=== PATIENT | male | born 1935 | race American Indian/Alaskan Native ===

== ENCOUNTER 2018-11-06 16:14 | Inpatient (IN) | payer MEDICARE ==
[2018-11-06] MEDS ORDERED: Sodium Chloride 0.9% 500 ML IV ONE ×2 (17:12→18:38)
--- NOTE | 2018-11-06 17:32 | RAD ---
Date of service: 11/06/2018 PROCEDURE: CHEST RADIOGRAPH, 1 VIEW HISTORY: abd pain COMPARISON: Chest radiograph dated 09/17/2013. FINDINGS: LUNGS: Clear. PLEURA: No pneumothorax or pleural fluid seen. CARDIOVASCULAR: Aortic atherosclerotic calcifications. Cardiomediastinal silhouette within normal limits. OSSEOUS STRUCTURES: Unchanged. VISUALIZED UPPER ABDOMEN: Normal. OTHER FINDINGS: None. IMPRESSION: No active disease.
--- NOTE | 2018-11-06 17:38 | C.PDOC ---
History Of Present Illness 83 y/o male presents to the ER with son for evaluation of generalized weakness. Son states that patient has progressively decreased appetite and PO intake. Son reports that patient has not evaluated by a PMD for many years. Patient notes that he has cough. Denies having CP, SOB, nausea, vomiting, abdominal pain, rectal pain, and rectal bleeding. Time Seen by Provider: 11/06/18 16:38 Chief Complaint (Nursing): Weakness/Neurological Deficit History Per: Patient, Family (son) History/Exam Limitations: no limitations Onset/Duration Of Symptoms: Days Current Symptoms Are (Timing): Still Present Severity: Moderate Past Medical History Reviewed: Historical Data, Nursing Documentation, Vital Signs Vital Signs: Last Vital Signs Temp 98.9 F 11/06/18 16:28 Pulse 88 11/06/18 16:28 Resp 18 11/06/18 16:28 BP 156/117 H 11/06/18 16:28 Pulse Ox 99 11/06/18 16:28 - Medical History PMH: Seizures Surgical History: No Surg Hx - [facility] Procedures COLONOSCOPY (09/17/13) ESOPHAGOGASTRODUODENOSCOPY [EGD] W/CLOSED BIOPSY (09/17/13) PACKED CELL TRANSFUSION (09/17/13) Family History: States: No Known Family Hx - Social History Hx Tobacco Use: No Hx Alcohol Use: Yes (stppoed 20 years ago) Hx Substance Use: No - Immunization History Hx Tetanus Toxoid Vaccination: No Hx Influenza Vaccination: No Hx Pneumococcal Vaccination: No Review Of Systems Constitutional: Positive for: Weakness. Negative for: Fever, Chills Cardiovascular: Negative for: Chest Pain Respiratory: Negative for: Shortness of Breath Gastrointestinal: Negative for: Nausea, Vomiting, Abdominal Pain Physical Exam - Physical Exam Appears: No Acute Distress, Unkempt Skin: Warm, Dry, Pale (slightly pale) Head: Atraumatic, Normacephalic Eye(s): bilateral: Normal Inspection Neck: Supple Chest: Symmetrical Cardiovascular: Rhythm Regular Respiratory: Rales (some scattered rales), No Rhonchi, No Wheezing Gastrointestinal/Abdominal: Soft, No Tenderness, No Guarding, No Rebound Extremity: Normal ROM, Pedal Edema Neurological/Psych: Oriented x3, Normal Speech, Normal Cognition, Normal Motor, Normal Sensation ED Course And Treatment - Laboratory Results Result Diagrams: 11/06/18 17:35 11/06/18 17:35 O2 Sat by Pulse Oximetry: 99 (RA) Pulse Ox Interpretation: Normal - Radiology CXR: Interpreted by Me, Viewed By Me CXR Interpretation: Yes: No Acute Disease Medical Decision Making Medical Decision Making: Plan: --Labs --UA --CXR --IV Fluids 1805 pt endorses feeling depressed sometimes, denies si, hi and ah. denies wa nting to speak to someone today about feelings of depression. [address] Stringer, will admit to his service. Disposition Discussed With Dr.: Lorena Stringer - Disposition Disposition: HOSPITALIZED Disposition Time: 18:46 Condition: FAIR Forms: [employer] (German) - Clinical Impression Clinical Impression: Failure to thrive syndrome, adult, Hypokalemia - PA / QUALITY COMPLIANCE MANAGER / Resident Statement MD/DO has reviewed & agrees with the documentation as recorded. - Scribe Statement The provider has reviewed the documentation as recorded by the Ygibe Praful Olea Provider Attestation All medical record entries made by the Scribe were at my direction and personally dictated by me. I have reviewed the chart and agree that the record accurately reflects my personal performance of the history, physical exam, medic al decision making, and the department course for this patient. I have also personally directed, reviewed, and agree with the discharge instructions and disposition.
[2018-11-06 17:41] LABS: BASO % 0.6 % (0.0-2.0); MEAN CELL VOLUME 87.7 fL (80.0-94.0); MEAN CORPUSCULAR HEMOGLOBIN 29.3 pg (27.0-31.0); MEAN CORPUSCULAR HGB CONC 33.4 g/dL (33.0-37.0); MEAN PLATELET VOLUME 9.3 fL (7.2-11.7); MONO # 0.1 K/uL (0.0-0.8); MONO % 4.2 % (0.0-10.0); NEUT # 2.1 K/uL (1.8-7.0); NEUT % 65.2 % (50.0-75.0); NRBC % 0.1 % (0.0-2.0); RBC 4.38 Mil/uL (4.40-5.90); RED CELL DISTRIBUTION WIDTH 14.6 % (11.5-14.5); WHITE BLOOD COUNT 3.3 K/uL (4.8-10.8)
[2018-11-06 17:44] LABS: HEMOGLOBIN 12.8 g/dL (12.0-18.0)
[2018-11-06 17:49] LABS: INR 1.2; PROTHROMBIN TIME 13.3 SECONDS (9.7-12.2)
[2018-11-06 17:51] LABS: ALB/GLOB RATIO 1.1 (1.0-2.1); ALBUMIN 4.8 g/dL (3.5-5.0); AST/SGOT 17 U/L (17-59); BLOOD UREA NITROGEN 10 mg/dL (9-20); CALCIUM 8.8 mg/dl (8.6-10.4); GFR NON-AFRICAN AMERICAN > 60; LIPASE 43 U/L (23-300)
[2018-11-06 17:58] LABS: ALT/SGPT < 6 U/L (21-72)
[2018-11-06] MEDS ORDERED: Potassium Chloride 20 mEq ER Tab PO STA (18:04)
--- NOTE | 2018-11-06 18:37 | CT ---
Date of service: 11/06/2018 PROCEDURE: CT HEAD WITHOUT CONTRAST. HISTORY: generalized weakness COMPARISON: None available. TECHNIQUE: Axial computed tomography images were obtained through the head/brain without intravenous contrast. Radiation dose: Total exam DLP = 950.55 mGy-cm. This CT exam was performed using one or more of the following dose reduction techniques: Automated exposure control, adjustment of the mA and/or kV according to patient size, and/or use of iterative reconstruction technique. FINDINGS: HEMORRHAGE: No intracranial hemorrhage. BRAIN: No mass effect or edema. Atrophy. Chronic microvascular ischemic changes. Bilateral basal ganglia lacunar infarctions. VENTRICLES: Unremarkable. No hydrocephalus. CALVARIUM: Unremarkable. PARANASAL SINUSES: Diffuse sinus mucosal thickening. MASTOID AIR CELLS: Unremarkable as visualized. No inflammatory changes. OTHER FINDINGS: None. IMPRESSION: No acute intracranial pathology. Age-related changes. Pansinusitis.
[2018-11-06] MEDS ORDERED: Potassium Chloride 20 mEq ER Tab PO ONE (18:38)
[2018-11-06] MEDS: Dextrose 5%/0.45% NS 1,000 ML IV SCH (20:50)
[2018-11-07 01:19] VITALS: RESP 20
[2018-11-07 03:23] LABS: SQUAMOUS EPITHIAL 1 /hpf (0-5); URINE BACTERIA MANY (<OCC); URINE BILIRUBIN NEGATIVE (NEGATIVE); URINE BLOOD 1+ (NEGATIVE); URINE CLARITY Hazy (Clear); URINE COLOR Yellow (YELLOW); URINE GLUCOSE (UA) NORMAL (Normal); URINE LEUKOCYTE ESTERASE 2+ Leu/uL (Negative); URINE PROTEIN NEGATIVE (NEGATIVE)
[2018-11-07] MEDS: Pantoprazole 40 mg EC Tab PO SCH (09:29)
[2018-11-07] MEDS: Enoxaparin 40 mg Syringe SC SCH (09:29)
[2018-11-07] MEDS: Dextrose 5%/0.45% NS 1,000 ML IV SCH ×2 (09:33→12:27)
--- NOTE | 2018-11-07 10:24 | CP.PCM.PN ---
Subjective - Date & Time of Evaluation Date of Evaluation: 11/07/18 Time of Evaluation: 08:45 - Subjective Subjective: Medicine progress note ( Dr. Stringer's service) Patient was seen and examined at bedside while resting in bed comfortably. Patient states that he is doing well and has no complaints. Patient denies any discomfort. When patient was asked why he was admitted, he states that he does not know and was mildly agitated about being questioned. Patient states that he is attempting to eat. As per phone conversation with son, Gurvinder, patient was not been eating, increase weakness and needing more assistance from his son. Objective - Vital Signs/Intake and Output Vital Signs (last 24 hours): Temp Pulse Resp BP Pulse Ox 97.8 F 75 20 126/78 99 11/07/18 07:28 11/07/18 07:28 11/07/18 07:28 11/07/18 07:28 11/07/18 07:52 Intake and Output: 11/07/18 11/07/18 06:59 18:59 Intake Total 1160 Balance 1160 - Medications Medications: Current Medications Enoxaparin Sodium (Lovenox) 40 mg SC DAILY [facility] Last Admin: 11/07/18 09:29 Dose: 40 mg Dextrose/Sodium Chloride (Dextrose 5%/0.45% Ns 1000 Ml) 1,000 mls @ 80 mls/hr IV .[id number] [facility] Last Admin: 11/07/18 09:33 Dose: Not Given Pantoprazole Sodium (Protonix Ec Tab) 40 mg PO DAILY [facility] Last Admin: 11/07/18 09:29 Dose: 40 mg - Labs Labs: 11/06/18 17:35 11/06/18 17:35 PT 13.3 SECONDS (9.7-12.2) H 11/06/18 17:35 INR 1.2 11/06/18 17:35 APTT 33 SECONDS (21-34) 11/06/18 17:35 - Constitutional Appears: No Acute Distress - Head Exam Head Exam: ATRAUMATIC, NORMAL INSPECTION - Eye Exam Eye Exam: EOMI, Normal appearance - ENT Exam ENT Exam: Mucous Membranes Moist - Respiratory Exam Respiratory Exam: Clear to Ausculation Bilateral, NORMAL BREATHING PATTERN. absent: Decreased Breath Sounds, Prolonged Expiratory Phase, Rhonchi, Wheezes - Cardiovascular Exam Cardiovascular Exam: REGULAR RHYTHM, +S1, +S2. absent: Tachycardia, Murmur - GI/Abdominal Exam GI & Abdominal Exam: Soft, Normal Bowel Sounds. absent: Distended, Firm, Guarding, Rigid, Tenderness - Extremities Exam Extremities Exam: Normal Inspection. absent: Calf Tenderness, Pedal Edema - Neurological Exam Neurological Exam: Alert, Awake, Oriented x3 - Psychiatric Exam Psychiatric exam: Agitated Additional comments: Mildly agitated - Skin Skin Exam: Normal Color Assessment and Plan (1) Failure to thrive syndrome, adult Assessment & Plan: As per patient son, patient has not being doing well with decrease PO intake - Heart healthy diet with ensure supplement - PT and OT evaluation Status: Acute (2) Electrolyte imbalance Assessment & Plan: Hypokalemia, hypophosphatemia - Repleted appropriately -Continue to monitor with am labs Status: Acute (3) UTI (urinary tract infection) Assessment & Plan: UA: Nitrate positive and 2+ LE, F/u Urine culture Rocephin 1gm IV daily Status: Acute (4) Prophylactic measure Assessment & Plan: GI: Protonix 40mg PO daily DVT: Lovenox 40mg SC daily All plans and management discussed with Dr. Stringer Status: Acute
[2018-11-07 10:58] LABS: BASO % 0.7 % (0.0-2.0); EOS % 1.7 % (0.0-4.0); HEMOGLOBIN 11.1 g/dL (12.0-18.0); LYMPH # 1.3 K/uL (1.0-4.3); LYMPH % 44.9 % (20.0-40.0); MEAN CELL VOLUME 86.8 fL (80.0-94.0); MEAN CORPUSCULAR HEMOGLOBIN 30.3 pg (27.0-31.0); MEAN CORPUSCULAR HGB CONC 34.9 g/dL (33.0-37.0); MONO # 0.2 K/uL (0.0-0.8); MONO % 6.9 % (0.0-10.0); NEUT # 1.3 K/uL (1.8-7.0); NEUT % 45.8 % (50.0-75.0); NRBC % 0.1 % (0.0-2.0); RBC 3.67 Mil/uL (4.40-5.90); RED CELL DISTRIBUTION WIDTH 14.9 % (11.5-14.5); WHITE BLOOD COUNT 2.8 K/uL (4.8-10.8)
[2018-11-07 11:13] LABS: ALB/GLOB RATIO 1.2 (1.0-2.1); ALBUMIN 3.9 g/dL (3.5-5.0); ALT/SGPT 16 U/L (21-72); AST/SGOT 15 U/L (17-59); BLOOD UREA NITROGEN 9 mg/dL (9-20); CALCIUM 8.1 mg/dl (8.6-10.4); GFR NON-AFRICAN AMERICAN > 60
[2018-11-07] MEDS ORDERED: Potassium & Sodium Phosphate PO ONE (11:40)
[2018-11-07] MEDS ORDERED: Potassium Chloride 20 mEq ER Tab PO ONE ×2 (11:41→15:41)
[2018-11-07] MEDS: Saccharomyces Boulardi 250 mg Cap PO SCH (17:48)
[2018-11-08] MEDS: Dextrose 5%/0.45% NS 1,000 ML IV SCH ×3 (05:44→21:51)
[2018-11-08 06:15] LABS: BASO % 0.7 % (0.0-2.0); EOS % 1.5 % (0.0-4.0); LYMPH # 1.7 K/uL (1.0-4.3); LYMPH % 55.3 % (20.0-40.0); MEAN CELL VOLUME 88.3 fL (80.0-94.0); MEAN CORPUSCULAR HEMOGLOBIN 30.1 pg (27.0-31.0); MEAN PLATELET VOLUME 9.1 fL (7.2-11.7); MONO # 0.2 K/uL (0.0-0.8); MONO % 6.1 % (0.0-10.0); NEUT # 1.1 K/uL (1.8-7.0); NEUT % 36.4 % (50.0-75.0); NRBC % 0.1 % (0.0-2.0); RBC 3.67 Mil/uL (4.40-5.90); RED CELL DISTRIBUTION WIDTH 14.8 % (11.5-14.5)
[2018-11-08 06:32] LABS: ALB/GLOB RATIO 1.2 (1.0-2.1); ALBUMIN 3.9 g/dL (3.5-5.0); ALT/SGPT 15 U/L (21-72); AST/SGOT 14 U/L (17-59); BLOOD UREA NITROGEN 10 mg/dL (9-20); CALCIUM 8.1 mg/dl (8.6-10.4); GFR NON-AFRICAN AMERICAN > 60
--- NOTE | 2018-11-08 06:34 | HP ---
HISTORY OF PRESENT ILLNESS: The patient is an 83-year-old male, admitted to the hospital with chief complaint of failure to thrive, weakness, poor appetite. The patient came to the ER, evaluated, advised admission. There was positive nitrites in urinalysis. PHYSICAL EXAMINATION: GENERAL: The patient is awake, alert, weak, and under built. VITAL SIGNS: Temperature is 98 and pulse 90. HEENT: Within normal limits. NECK: Supple. CHEST: Symmetrical. HEART: Regular. ABDOMEN: Soft. EXTREMITIES: No edema. IMPRESSION AND PLAN: The patient suffers from probable urinary tract infection, failure to thrive. The patient to get intravenous fluids, gentle hydration, intravenous antibiotics. . Lorena Stringer MD
[2018-11-08] MEDS: Enoxaparin 40 mg Syringe SC SCH (10:32)
[2018-11-08] MEDS: Saccharomyces Boulardi 250 mg Cap PO SCH ×2 (10:33→17:26)
[2018-11-08] MEDS: Pantoprazole 40 mg EC Tab PO SCH (10:33)
[2018-11-08] MEDS: Megestrol Acetate 40 mg/ml Cup PO SCH (11:55)
--- NOTE | 2018-11-08 13:37 | CP.PCM.PN ---
Subjective - Date & Time of Evaluation Date of Evaluation: 11/08/18 Time of Evaluation: 07:00 - Subjective Subjective: PGY2- Progress Note for Dr. Stringer Patient seen and examined at bedside. Patient resting comfortably. Patient says he has no appetite and has not eaten any of his breakfast. Patient denies any chest pain, shortness of breath, abdominal pain, nausea, vomiting, constipation, diarrhea, dysuria, or hematuria. Objective - Vital Signs/Intake and Output Vital Signs (last 24 hours): Temp Pulse Resp BP Pulse Ox 97.7 F 77 20 140/80 98 11/08/18 01:00 11/08/18 01:00 11/08/18 01:00 11/08/18 01:00 11/07/18 20:00 Intake and Output: 11/08/18 11/08/18 06:59 18:59 Intake Total 820 Balance 820 - Medications Medications: Current Medications Enoxaparin Sodium (Lovenox) 40 mg SC DAILY [facility] Last Admin: 11/08/18 10:32 Dose: 40 mg Dextrose/Sodium Chloride (Dextrose 5%/0.45% Ns 1000 Ml) 1,000 mls @ 80 mls/hr IV .[id number] [facility] Last Admin: 11/08/18 10:32 Dose: Not Given Ceftriaxone Sodium 1 gm/ (Sodium Chloride) 100 mls @ 100 mls/hr IVPB Q24H [facility]; Protocol Last Admin: 11/08/18 11:54 Dose: 100 mls/hr Megestrol Acetate (Megace) 400 mg PO DAILY [facility] Last Admin: 11/08/18 11:55 Dose: 400 mg Pantoprazole Sodium (Protonix Ec Tab) 40 mg PO DAILY [facility] Last Admin: 11/08/18 10:33 Dose: 40 mg Saccharomyces Boulardii (Florastor) 250 mg PO BID [facility] Last Admin: 11/08/18 10:33 Dose: 250 mg - Labs Labs: 11/08/18 06:04 11/08/18 06:04 PT 13.3 SECONDS (9.7-12.2) H 11/06/18 17:35 INR 1.2 11/06/18 17:35 APTT 33 SECONDS (21-34) 11/06/18 17:35 - Constitutional Appears: Non-toxic, No Acute Distress, Unkempt - Head Exam Head Exam: ATRAUMATIC, NORMAL INSPECTION, NORMOCEPHALIC - Eye Exam Eye Exam: EOMI, Normal appearance - Respiratory Exam Respiratory Exam: Clear to Ausculation Bilateral, NORMAL BREATHING PATTERN. absent: Rales, Rhonchi, Wheezes, Stridor - Cardiovascular Exam Cardiovascular Exam: REGULAR RHYTHM, RRR, +S1, +S2 - GI/Abdominal Exam GI & Abdominal Exam: Soft, Normal Bowel Sounds. absent: Tenderness - Extremities Exam Extremities Exam: Full ROM, Normal Inspection. absent: Pedal Edema, Tenderness - Neurological Exam Neurological Exam: Alert, Awake, Oriented x3 - Psychiatric Exam Psychiatric exam: Normal Affect, Normal Mood - Skin Skin Exam: Intact, Normal Color, Warm Assessment and Plan - Assessment and Plan (Free Text) Assessment: (1) Failure to thrive syndrome, adult Assessment & Plan: - Heart healthy diet with ensure supplement - PT and OT evaluation - Megace 400mg po daily - D5 1/2 NS at 80 cc/hr Status: Acute (2) UTI (urinary tract infection) Assessment & Plan: UA: Nitrate positive and 2+ LE, F/u Urine culture Rocephin 1gm IV daily Florastor 250mg po BID Status: Acute (3) Electrolyte imbalance, resolved Assessment & Plan: Hypokalemia, hypophosphatemia - Repleted appropriately -Continue to monitor with am labs Status: Acute (4) Prophylactic measure Assessment & Plan: GI: Protonix 40mg PO daily DVT: Lovenox 40mg SC daily Status: Acute All plans and management discussed with Dr. Stringer
[2018-11-09 08:10] LABS: BASO % 0.5 % (0.0-2.0); EOS # 0.1 K/uL (0.0-0.7); EOS % 1.4 % (0.0-4.0); HEMOGLOBIN 10.8 g/dL (12.0-18.0); LYMPH # 2.1 K/uL (1.0-4.3); LYMPH % 51.7 % (20.0-40.0); MEAN CELL VOLUME 88.5 fL (80.0-94.0); MEAN CORPUSCULAR HEMOGLOBIN 29.3 pg (27.0-31.0); MEAN CORPUSCULAR HGB CONC 33.2 g/dL (33.0-37.0); MEAN PLATELET VOLUME 8.8 fL (7.2-11.7); MONO # 0.2 K/uL (0.0-0.8); MONO % 5.5 % (0.0-10.0); NEUT # 1.6 K/uL (1.8-7.0); NEUT % 40.9 % (50.0-75.0); NRBC % 0.2 % (0.0-2.0); RBC 3.69 Mil/uL (4.40-5.90); RED CELL DISTRIBUTION WIDTH 14.8 % (11.5-14.5)
[2018-11-09 08:22] LABS: ALB/GLOB RATIO 1.2 (1.0-2.1); ALT/SGPT < 6 U/L (21-72); AST/SGOT 17 U/L (17-59); BLOOD UREA NITROGEN 8 mg/dL (9-20); CALCIUM 8.1 mg/dl (8.6-10.4); GFR NON-AFRICAN AMERICAN > 60
[2018-11-09] MEDS: Enoxaparin 40 mg Syringe SC SCH (09:29)
[2018-11-09] MEDS: Megestrol Acetate 40 mg/ml Cup PO SCH (09:29)
[2018-11-09] MEDS: Pantoprazole 40 mg EC Tab PO SCH (09:29)
[2018-11-09] MEDS: Saccharomyces Boulardi 250 mg Cap PO SCH ×2 (09:29→17:56)
[2018-11-09] MEDS: Dextrose 5%/0.45% NS 1,000 ML IV SCH ×3 (10:00→21:30)
--- NOTE | 2018-11-09 10:25 | CP.PCM.PN ---
Subjective - Date & Time of Evaluation Date of Evaluation: 11/09/18 Time of Evaluation: 07:00 - Subjective Subjective: PGY2- Progress Note for Dr. Stringer Patient seen and examined at bedside. Patient resting comfortably. Patient says he ate some of his breakfast today. Patient denies any chest pain, shortness of breath, abdominal pain, nausea, vomiting, constipation, diarrhea, dysuria, or hematuria. Spoke with patient's son Gurvinder who says patient does not take any medications at home. Objective - Vital Signs/Intake and Output Vital Signs (last 24 hours): Temp Pulse Resp BP Pulse Ox 98 F 69 20 165/64 H 100 11/09/18 09:01 11/09/18 09:01 11/09/18 09:01 11/09/18 09:01 11/09/18 09:01 Intake and Output: 11/09/18 11/09/18 06:59 18:59 Intake Total 840 Output Total 600 Balance 240 - Medications Medications: Current Medications Enoxaparin Sodium (Lovenox) 40 mg SC DAILY [facility] Last Admin: 11/09/18 09:29 Dose: 40 mg Dextrose/Sodium Chloride (Dextrose 5%/0.45% Ns 1000 Ml) 1,000 mls @ 80 mls/hr IV .[id number] [facility] Last Admin: 11/08/18 21:51 Dose: 80 mls/hr Ceftriaxone Sodium 1 gm/ (Sodium Chloride) 100 mls @ 100 mls/hr IVPB Q24H [facility]; Protocol Last Admin: 11/08/18 11:54 Dose: 100 mls/hr Megestrol Acetate (Megace) 400 mg PO DAILY [facility] Last Admin: 11/09/18 09:29 Dose: 400 mg Pantoprazole Sodium (Protonix Ec Tab) 40 mg PO DAILY [facility] Last Admin: 11/09/18 09:29 Dose: 40 mg Saccharomyces Boulardii (Florastor) 250 mg PO BID [facility] Last Admin: 11/09/18 09:29 Dose: 250 mg - Labs Labs: 11/09/18 07:53 11/09/18 07:53 PT 13.3 SECONDS (9.7-12.2) H 11/06/18 17:35 INR 1.2 11/06/18 17:35 APTT 33 SECONDS (21-34) 11/06/18 17:35 - Additional Findings Additional findings: - Constitutional Appears: Non-toxic, No Acute Distress, Unkempt - Head Exam Head Exam: ATRAUMATIC, NORMAL INSPECTION, NORMOCEPHALIC - Eye Exam Eye Exam: EOMI, Normal appearance - Respiratory Exam Respiratory Exam: Clear to Ausculation Bilateral, NORMAL BREATHING PATTERN. absent: Rales, Rhonchi, Wheezes, Stridor - Cardiovascular Exam Cardiovascular Exam: REGULAR RHYTHM, RRR, +S1, +S2 - GI/Abdominal Exam GI & Abdominal Exam: Soft, Normal Bowel Sounds. absent: Tenderness - Extremities Exam Extremities Exam: Full ROM, Normal Inspection. absent: Pedal Edema, Tenderness - Neurological Exam Neurological Exam: Alert, Awake, Oriented x3 - Psychiatric Exam Psychiatric exam: Normal Affect, Normal Mood - Skin Skin Exam: Intact, Normal Color, Warm Assessment and Plan - Assessment and Plan (Free Text) Assessment: (1) Failure to thrive syndrome, adult Assessment & Plan: - Heart healthy diet with ensure supplement - PT and OT evaluation - Megace 400mg po daily Status: Acute (2) UTI (urinary tract infection) Assessment & Plan: UA: Nitrate positive and 2+ LE, F/u Urine culture Rocephin 1gm IV daily (started on 11/07/18) Florastor 250mg po BID Status: Acute (3) HTN Assessment & Plan: Lisinopril 2.5mg po daily (started on 11/09/18) continue to monitor Status: Acute (4) Electrolyte imbalance, resolved Assessment & Plan: Hypokalemia, hypophosphatemia - Repleted appropriately -Continue to monitor with am labs Status: Acute (5) Prophylactic measure Assessment & Plan: GI: Protonix 40mg PO daily DVT: Lovenox 40mg SC daily Status: Acute Dispo: patient to be discharged to rehab pending approval All plans and management discussed with Dr. Stringer
[2018-11-10] MEDS: Dextrose 5%/0.45% NS 1,000 ML IV SCH ×4 (01:59→23:00)
[2018-11-10 08:20] LABS: BASO % 0.3 % (0.0-2.0); EOS # 0.1 K/uL (0.0-0.7); EOS % 1.7 % (0.0-4.0); HEMOGLOBIN 11.1 g/dL (12.0-18.0); LYMPH # 2.1 K/uL (1.0-4.3); LYMPH % 47.9 % (20.0-40.0); MEAN CELL VOLUME 88.2 fL (80.0-94.0); MEAN CORPUSCULAR HEMOGLOBIN 30.3 pg (27.0-31.0); MEAN CORPUSCULAR HGB CONC 34.4 g/dL (33.0-37.0); MEAN PLATELET VOLUME 8.9 fL (7.2-11.7); MONO # 0.2 K/uL (0.0-0.8); MONO % 4.6 % (0.0-10.0); NEUT % 45.5 % (50.0-75.0); RBC 3.66 Mil/uL (4.40-5.90); RED CELL DISTRIBUTION WIDTH 14.3 % (11.5-14.5); WHITE BLOOD COUNT 4.4 K/uL (4.8-10.8)
[2018-11-10 08:32] LABS: ALB/GLOB RATIO 1.3 (1.0-2.1); ALT/SGPT 8 U/L (21-72); AST/SGOT 15 U/L (17-59); BLOOD UREA NITROGEN 7 mg/dL (9-20); CALCIUM 8.2 mg/dl (8.6-10.4); GFR NON-AFRICAN AMERICAN > 60
[2018-11-10] MEDS: Pantoprazole 40 mg EC Tab PO SCH (09:42)
[2018-11-10] MEDS: Megestrol Acetate 40 mg/ml Cup PO SCH (09:42)
[2018-11-10] MEDS: Saccharomyces Boulardi 250 mg Cap PO SCH ×2 (09:42→17:27)
[2018-11-10] MEDS: Enoxaparin 40 mg Syringe SC SCH (09:44)
--- NOTE | 2018-11-10 10:01 | CP.PCM.PN ---
Subjective - Date & Time of Evaluation Date of Evaluation: 11/10/18 Time of Evaluation: 10:00 - Subjective Subjective: Progress Note for Dr. Stringer Patient seen and examined at bedside. No acute events reported overnight. Patient resting comfortably in bed. Patient denies fever, chills, headache, dizziness, chest pain, shortness of breath, abdominal pain, nausea, vomiting, constipation, diarrhea, or dysuria. Objective - Vital Signs/Intake and Output Vital Signs (last 24 hours): Temp Pulse Resp BP Pulse Ox 98.2 F 61 20 151/87 H 100 11/10/18 07:53 11/10/18 07:53 11/10/18 07:53 11/10/18 07:53 11/10/18 07:53 Intake and Output: 11/10/18 11/10/18 06:59 18:59 Intake Total 1700 Output Total 500 Balance 1200 - Medications Medications: Current Medications Enoxaparin Sodium (Lovenox) 40 mg SC DAILY [facility] Last Admin: 11/10/18 09:44 Dose: 40 mg Ceftriaxone Sodium 1 gm/ (Sodium Chloride) 100 mls @ 100 mls/hr IVPB Q24H [facility]; Protocol Last Admin: 11/09/18 12:19 Dose: 100 mls/hr Dextrose/Sodium Chloride (Dextrose 5%/0.45% Ns 1000 Ml) 1,000 mls @ 80 mls/hr IV .[id number] [facility] Last Admin: 11/10/18 09:48 Dose: Not Given Lisinopril (Zestril) 2.5 mg PO DAILY [facility] Last Admin: 11/10/18 09:42 Dose: 2.5 mg Megestrol Acetate (Megace) 400 mg PO DAILY [facility] Last Admin: 11/10/18 09:42 Dose: 400 mg Pantoprazole Sodium (Protonix Ec Tab) 40 mg PO DAILY [facility] Last Admin: 11/10/18 09:42 Dose: 40 mg Saccharomyces Boulardii (Florastor) 250 mg PO BID [facility] Last Admin: 11/10/18 09:42 Dose: 250 mg - Labs Labs: 11/10/18 08:13 11/10/18 08:13 PT 13.3 SECONDS (9.7-12.2) H 11/06/18 17:35 INR 1.2 11/06/18 17:35 APTT 33 SECONDS (21-34) 11/06/18 17:35 - Additional Findings Additional findings: - Constitutional Appears: Non-toxic, No Acute Distress, Unkempt - Head Exam Head Exam: ATRAUMATIC, NORMAL INSPECTION, NORMOCEPHALIC - Eye Exam Eye Exam: EOMI, Normal appearance - Respiratory Exam Respiratory Exam: Clear to Ausculation Bilateral, NORMAL BREATHING PATTERN. absent: Rales, Rhonchi, Wheezes, Stridor - Cardiovascular Exam Cardiovascular Exam: REGULAR RHYTHM, RRR, +S1, +S2 - GI/Abdominal Exam GI & Abdominal Exam: Soft, Normal Bowel Sounds. absent: Tenderness - Extremities Exam Extremities Exam: Full ROM, Normal Inspection. absent: Pedal Edema, Tenderness - Neurological Exam Neurological Exam: Alert, Awake, Oriented x3 - Psychiatric Exam Psychiatric exam: Normal Affect, Normal Mood - Skin Skin Exam: Intact, Normal Color, Warm Assessment and Plan - Assessment and Plan (Free Text) Assessment: Failure to thrive syndrome, adult Heart healthy diet with ensure supplement PT and OT evaluation Megace 400mg po daily UTI (urinary tract infection) Asymptomatic UA: Nitrate positive and 2+ LE Culture shows E. coli Rocephin 1gm IV daily (started on 11/07/18) Florastor 250mg po BID HTN Lisinopril 2.5mg po daily (started on 11/09/18) continue to monitor Electrolyte imbalance, resolved Hypokalemia, hypophosphatemia Repleted appropriately Continue to monitor with am labs Prophylactic measure GI: Protonix 40mg PO daily DVT: Lovenox 40mg SC daily Dispo: patient to be discharged to [facility] pending approval All plans and management discussed with Dr. tSringer
[2018-11-11] MEDS: Dextrose 5%/0.45% NS 1,000 ML IV SCH ×2 (04:14→11:00)
[2018-11-11 07:46] LABS: BASO % 0.5 % (0.0-2.0); EOS # 0.1 K/uL (0.0-0.7); EOS % 2.1 % (0.0-4.0); HEMOGLOBIN 11.9 g/dL (12.0-18.0); LYMPH % 51.2 % (20.0-40.0); MEAN CELL VOLUME 87.8 fL (80.0-94.0); MEAN CORPUSCULAR HEMOGLOBIN 30.7 pg (27.0-31.0); MEAN PLATELET VOLUME 9.2 fL (7.2-11.7); MONO # 0.2 K/uL (0.0-0.8); MONO % 5.2 % (0.0-10.0); NEUT # 1.6 K/uL (1.8-7.0); NRBC % 0.1 % (0.0-2.0); RBC 3.89 Mil/uL (4.40-5.90); RED CELL DISTRIBUTION WIDTH 14.5 % (11.5-14.5)
[2018-11-11 08:00] LABS: ALB/GLOB RATIO 1.2 (1.0-2.1); ALBUMIN 4.1 g/dL (3.5-5.0); ALT/SGPT 12 U/L (21-72); AST/SGOT 15 U/L (17-59); BLOOD UREA NITROGEN 9 mg/dL (9-20); CALCIUM 8.5 mg/dl (8.6-10.4); GFR NON-AFRICAN AMERICAN > 60
[2018-11-11] MEDS: Enoxaparin 40 mg Syringe SC SCH (09:46)
[2018-11-11] MEDS: Pantoprazole 40 mg EC Tab PO SCH (09:46)
[2018-11-11] MEDS: Megestrol Acetate 40 mg/ml Cup PO SCH (09:46)
[2018-11-11] MEDS: Saccharomyces Boulardi 250 mg Cap PO SCH (09:46)
--- NOTE | 2018-11-11 13:04 | CP.PCM.PN ---
Subjective - Date & Time of Evaluation Date of Evaluation: 11/11/18 Time of Evaluation: 13:04 - Subjective Subjective: PATIENT SEEN AND EXAMINED AT THE BEDSIDE Objective - Vital Signs/Intake and Output Vital Signs (last 24 hours): Temp Pulse Resp BP Pulse Ox 98.3 F 60 20 159/80 H 98 11/11/18 07:00 11/11/18 07:00 11/11/18 07:00 11/11/18 07:00 11/11/18 07:00 Intake and Output: 11/11/18 11/11/18 06:59 18:59 Intake Total 820 Output Total 600 Balance 220 - Medications Medications: Current Medications Enoxaparin Sodium (Lovenox) 40 mg SC DAILY [facility] Last Admin: 11/11/18 09:46 Dose: 40 mg Ceftriaxone Sodium 1 gm/ (Sodium Chloride) 100 mls @ 100 mls/hr IVPB Q24H [facility]; Protocol Last Admin: 11/11/18 12:54 Dose: 100 mls/hr Dextrose/Sodium Chloride (Dextrose 5%/0.45% Ns 1000 Ml) 1,000 mls @ 80 mls/hr IV .[id number] [facility] Last Admin: 11/11/18 11:00 Dose: Not Given Lisinopril (Zestril) 2.5 mg PO DAILY [facility] Last Admin: 11/11/18 09:46 Dose: 2.5 mg Megestrol Acetate (Megace) 400 mg PO DAILY [facility] Last Admin: 11/11/18 09:46 Dose: 400 mg Pantoprazole Sodium (Protonix Ec Tab) 40 mg PO DAILY [facility] Last Admin: 11/11/18 09:46 Dose: 40 mg Saccharomyces Boulardii (Florastor) 250 mg PO BID [facility] Last Admin: 11/11/18 09:46 Dose: 250 mg - Labs Labs: 11/11/18 07:17 11/11/18 07:17 PT 13.3 SECONDS (9.7-12.2) H 11/06/18 17:35 INR 1.2 11/06/18 17:35 APTT 33 SECONDS (21-34) 11/06/18 17:35 Assessment and Plan - Assessment and Plan (Free Text) Assessment: PLACER UNDER THE SERVICE OF DR RASMUSSEN AT [facility] ----CALL FOR ADMITTING ORDER CONTINUE MED PER MED REC NEW PRESCRIPTION GIVEN CIPRO 500 MG PO Q12H FOR 3 DAYS ACTIVITY TOLERATED AND FACILITY PROTOCOL CALL DR RASMUSSEN FOR FURTHER ORDER
[2018-11-11] MEDS ORDERED: Pneumococcal 23-Valent Vaccine IM ONE (14:46)
[2018-11-11 16:48] VITALS: BP 123/73; PULSE 76; TEMP 98.4; O2SAT 97
== END 2018-11-11 16:59 | DRG 690 ==
LOC: C.ER 16:14 → C.3T 18:47 → OBSVTOIN 11-08 13:33
PROVIDERS: ADMIT Internal Medicine Pulmonary Disease; ATTEND Internal Medicine Pulmonary Disease
DX: N39.0 Urinary tract infection, site not specified (principal); Z68.1 Body mass index [BMI] 19.9 or less, adult; R62.7 Adult failure to thrive; R56.9 Unspecified convulsions; E83.39 Other disorders of phosphorus metabolism; E87.6 Hypokalemia; I10 Essential (primary) hypertension; B96.20 Unspecified Escherichia coli [E. coli] as the cause of diseases classified elsewhere